=== PATIENT | female | born 1995 | race Caucasian/White ===

== ENCOUNTER 2017-06-19 15:05 | Emergency (ER) | payer OTHER ==
[~2017-06-19] VITALS: Ht 162.6 cm; Wt 90.6 kg
[2017-06-19 15:09] VITALS: Ht 162.6 cm; Wt 90.6 kg
[2017-06-19] MEDS ORDERED: ACETAMINOPHEN 500 MG TAB PO STA (15:16)
[2017-06-19] MEDS ORDERED: SODIUM CHLORIDE 0.9% 1000ML 1,000 ML IV STA (16:03)
[2017-06-19] MEDS ORDERED: BCPILLS PO (16:09)
[2017-06-19] MEDS ORDERED: ALBUT/IPRATROP 3MG/0.5MG NEB 3 ML VIAL INH STA (16:11)
--- NOTE | 2017-06-19 16:11 | EMERGENCY ROOM VISIT NOTE ---
History First contact with patient: 15:51 Chief Complaint: FLU LIKE SX Stated Complaint: CHEST PAIN,COUGH,YE,COLD,FEVER,RUNNY NOSE,DIZZY History of Present Illness The patient is a 22 year old female who presents to the Emergency Room with complaints of cough for the past week, and development of worsening cough, chest tightness, fevers and chills, dizziness, and fatigue starting last night. She has been coughing up clear mucus, she denies hemoptysis. She states her chest tightness is in the center of her chest, worse with coughing, better with rest, not worse with taking a deep breath or lying flat, 2/10. She complains of generalized body aches and headaches as well. She denies shortness of breath , but states that she feels a little winded with activity, which is unusual for her. She states she took Motrin last night, but has not taken any medications today for her symptoms. She denies any neck pain or stiffness, vision changes, syncope, abdominal pain, back pain, nausea or vomiting, diarrhea, constipation, bloody or black stools, dysuria or urinary frequency, abnormal vaginal discharge , or rash. She states that her period started yesterday and these are regular, she denies concern for . Review of Systems A complete 10 point review of systems was reviewed with the patient with pertinent positives and negatives as per history of present illness. All else were negative. Past Medical/Surgical History No significant past medical or surgical history. She is up-to-date on immunizations. Social History Smoking Status: Never Smoker Alcohol Use: none Drug Use: none Marital Status: single Occupation Status: [employer] student Current/Historical Medications Scheduled Control Pills ( Control Pills), 1 TAB PO DAILY Allergies No known allergies Physical Exam Vital Signs Date Time Temp Pulse Resp B/P (MAP) Pulse Ox O2 Delivery O2 Flow Rate FiO2 06/19/17 19:10 37.0 97 18 124/67 97 06/19/17 18:10 37.3 98 15 110/61 97 Room Air 06/19/17 17:35 100 15 97 06/19/17 17:05 107 20 97 06/19/17 16:48 102 06/19/17 16:39 118/52 06/19/17 16:38 95 18 118/52 97 Room Air 06/19/17 15:09 38.9 119 18 112/70 97 Room Air Physical Exam CONSTITUTIONAL: Pleasant and cooperative. No acute distress, but does appear uncomfortable. Mildly dehydrated. HEENT: Normocephalic, atraumatic. Pupils equal, round and reactive to light, EOMI. TMs normal. Pharynx normal. [] NECK: Supple, full active range of motion without discomfort. RESPIRATORY: Clear to auscultation bilaterally with no wheezing, crackles, rhonchi or stridor. Equal expansion bilaterally. CARDIOVASCULAR: Regular rate and rhythm with no murmurs, rubs or gallops. Normal peripheral perfusion. No edema. GASTROINTESTINAL: Soft, nontender, nondistended. No palpable masses or HSM. Bowel sounds present in all quadrants. MUSCULOSKELETAL: Full range of motion of all joints without discomfort. INTEGUMENTARY: No rash or other significant dermatologic conditions noted. NEUROLOGIC: Alert and oriented X 4 with normal affect. Cranial nerves II-XII grossly intact. No focal neurologic deficits noted. [] Medical Decision & Procedures ER Provider Diagnostic Interpretation: CHEST 2 VIEWS ROUTINE CLINICAL HISTORY: 22 years-old Female presenting with cough, fever, eval PNA. TECHNIQUE: PA and lateral views of the chest were obtained. COMPARISON: None. FINDINGS: Cardiomediastinal silhouette normal. Lungs and pleural spaces clear. Osseous structures normal. Upper abdomen normal. IMPRESSION: 1. No acute cardiopulmonary disease. Laboratory Results 06/19/17 16:21 Red Blood Count 5.01, Mean Corpuscular Volume 86.6, Mean Corpuscular Hemoglobin 28.9, Mean Corpuscular Hemoglobin Concent 33.4, Mean Platelet Volume 9.5, Neutrophils (%) (Auto) 72.0, Lymphocytes (%) (Auto) 14.0, Monocytes (%) (Auto) 13.6, Eosinophils (%) (Auto) 0.0, Basophils (%) (Auto) 0.2, Neutrophils # (Auto ) 3.85, Lymphocytes # (Auto) 0.75, Monocytes # (Auto) 0.73, Eosinophils # (Auto ) 0.00, Basophils # (Auto) 0.01 06/19/17 16:21 Test 06/19/17 16:21 06/19/17 16:40 White Blood Count 5.35 K/uL (4.8-10.8) Red Blood Count 5.01 M/uL (4.2-5.4) Hemoglobin 14.5 g/dL (12.0-16.0) Hematocrit 43.4 % (37-47) Mean Corpuscular Volume 86.6 fL (80-100) Mean Corpuscular Hemoglobin 28.9 pg (25-34) Mean Corpuscular Hemoglobin Concent 33.4 g/dl (32-36) Platelet Count 223 K/uL (130-400) Mean Platelet Volume 9.5 fL (7.4-10.4) Neutrophils (%) (Auto) 72.0 % Lymphocytes (%) (Auto) 14.0 % Monocytes (%) (Auto) 13.6 % Eosinophils (%) (Auto) 0.0 % Basophils (%) (Auto) 0.2 % Neutrophils # (Auto) 3.85 K/uL (1.4-6.5) Lymphocytes # (Auto) 0.75 K/uL (1.2-3.4) Monocytes # (Auto) 0.73 K/uL (0.11-0.59) Eosinophils # (Auto) 0.00 K/uL (0-0.5) Basophils # (Auto) 0.01 K/uL (0-0.2) RDW Standard Deviation 41.7 fL (36.4-46.3) RDW Coefficient of Variation 13.1 % (11.5-14.5) Immature Granulocyte % (Auto) 0.2 % Immature Granulocyte # (Auto) 0.01 K/uL (0.00-0.02) Anion Gap 9.0 mmol/L (3-11) Est Creatinine Clear Calc Drug Dose 117.9 ml/min Estimated GFR () 117.7 Estimated GFR (Non- 101.5 BUN/Creatinine Ratio 8.3 (10-20) Calcium Level 8.7 mg/dl (8.5-10.1) Total Bilirubin 0.3 mg/dl (0.2-1) Aspartate Amino Transf (AST/SGOT) 15 U/L (15-37) Alanine Aminotransferase (ALT/SGPT) 20 U/L (12-78) Alkaline Phosphatase 70 U/L (45-117) Total Protein 7.9 gm/dl (6.4-8.2) Albumin 3.7 gm/dl (3.4-5.0) Globulin 4.2 gm/dl (2.5-4.0) Albumin/Globulin Ratio 0.9 (0.9-2) Influenza Type A Antigen Neg for Influ A (NEG) Influenza Type B Antigen POS for Influ B (NEG) Urine Color DK YELLOW Urine Appearance CLEAR (CLEAR) Urine pH 5.0 (4.5-7.5) Urine Specific [place] 1.027 (1.000-1.030) Urine Protein NEG (NEG) Urine Glucose (UA) NEG (NEG) Urine Ketones TRACE (NEG) Urine Occult Blood 2+ (NEG) Urine Nitrite NEG (NEG) Urine Bilirubin NEG (NEG) Urine Urobilinogen NEG (NEG) Urine Leukocyte Esterase NEG (NEG) Urine WBC (Auto) 5-10 /hpf (0-5) Urine RBC (Auto) 0-4 /hpf (0-4) Urine Hyaline Casts (Auto) 1-5 /lpf (0-5) Urine Epithelial Cells (Auto) >30 /lpf (0-5) Urine Bacteria (Auto) NEG (NEG) Urine Test NEG (NEG) Medications Administered Medications (Trade) Dose Ordered Sig/Clive Route Start Time Stop Time Status Last Admin Dose Admin Acetaminophen (Tylenol Tab) 1,000 mg NOW STAT PO 06/19/17 15:16 06/19/17 15:18 DC 06/19/17 15:55 1,000 MG Sodium Chloride 1,000 ml @ 999 mls/hr Q1H1M STAT IV 06/19/17 16:03 06/19/17 17:03 DC 06/19/17 16:26 999 MLS/HR Albuterol/ Ipratropium (Duoneb) 3 ml NOW STAT INH 06/19/17 16:11 06/19/17 16:12 DC 06/19/17 16:26 3 ML Ketorolac Tromethamine (Toradol Inj) 15 mg NOW STAT IV 06/19/17 17:29 06/19/17 17:30 DC 06/19/17 18:09 15 MG ECG Indication: chest pain, tachycardia Rate (beats per minute): 88 Rhythm: normal sinus Findings: no acute ischemic change, no ectopy Comparison ECG Date: no prior available Medical Decision CC: Patient presenting with complaint of flulike symptoms Interpretation of Labs: No leukocytosis, no anemia, no significant electrolyte abnormality, normal renal function, normal liver enzymes. Influenza positive for type B. UA negative for infection. Urine negative. Differential Diagnosis: Includes, but not limited to viral URI, bronchitis, pneumonia, influenza, dehydration, among others. Medication Reconciliation: I attest that I have personally reviewed the patient' s current medication list. Initial vital signs review: I reviewed the patient's vital signs and interpret them as follows: T: Febrile; BP: Normotensive; HR: Tachycardic; RR: Within normal limits; Pulse Ox: Within normal limits on room air. Blood pressure screening: The patient was found to have normal blood pressure on screening and does not require follow-up for repeat blood pressure check. Summary: Patient was evaluated at bedside, history and physical exam performed. Patient is alert and oriented, no acute distress, resting, in the stretcher. Patient is noted to be tachycardic and febrile, and appears to feel generally unwell. She does appear mildly dehydrated. Orders were placed at bedside for labs, UA and urine , IV fluids for hydration, Tylenol for fever, EKG, chest x-ray to evaluate for pneumonia. Patient discussed with Dr. Martin, who agrees with my assessment and plan. Labs reviewed as above, positive for influenza type B. Labs otherwise unremarkable. EKG shows normal sinus rhythm with no acute ischemic changes by my interpretation. Chest x-ray is unremarkable. Patient reassessed multiple times throughout ED stay, she appears much improved , tachycardia resolving, and she has defervesced appropriately after Tylenol. She is tolerating oral fluids well without complications. She states she is feeling much better and is ready to go home. Patient was updated on all results and plan for discharge, she was encouraged to follow closely with her primary care provider or [facility]. She was also given strict return precautions should her symptoms worsen, she verbalized understanding. The patient was discharged home in stable condition and ambulatory. Impression Primary Impression: Influenza B Departure Information Dispostion Home / Self-Care Condition GOOD Patient Instructions ED Flu, My [facility] Additional Instructions You have been treated in the Emergency Department today for Dehydration. Test results today are POSITIVE for influenza type B. This is most likely the cause of all of your symptoms. Influenza is a type of virus that should run its course and symptoms should be improved after 7-10 days, but may last up to 14 days. For fevers and body aches/headaches, you may take the following over-the- counter medications: - Extra strength Tylenol (500 mg) 1-2 tablets every 6-8 hours as needed. Do not take more than 6 tablets (3000 mg) in 24 hours. - Ibuprofen (200 mg) 3 tablets every 6-8 hours as needed. Do not take more than 2400 mg in 24 hours. - For best results, you may alternate between the Tylenol and the ibuprofen every 3-4 hours for severe body aches and fevers. It is ESSENTIAL that you maintain adequate hydration with oral fluids! Some suggestions include: - Water is the IDEAL replacement for lost fluids. You should initially sip at the water to help facilitate increased intestinal absorption rate and to decrease the possibility of nausea/vomiting. - Carbohydrate/Electrolyte-Containing Drinks (i.e. Gatorade, Powerade, Pedialyte). All of these are good choices, but it is important to remember that all of these drinks contain a high concentration of sugar. - Popsicles, ice chips, and fruit juices are all other options. - My FAVORITE dehydration remedy is to mix a 1:1 solution of bottled Gatorade with bottled water. This dilution allows for a palatable flavor with added benefit of a reduction in the amount of sugar consumption. As with all Emergency Department visits, you should follow-up with your Primary Care Provider in 2-3 days for reevaluation. [facility] tomorrow morning for guidance and assistance regarding any missed classes this week due to your illness. Please return to the emergency department for any worsening symptoms, including difficulty breathing, chest pain, coughing up blood, severe dizziness or passing out, confusion, severe headache, or any other concerns. School Instructions Return To School: 5 days
[2017-06-19 16:35] LABS: BASO % 0.2 %; BASO ABS # 0.01 K/uL (0-0.2); HEMATOCRIT 43.4 % (37-47); HEMOGLOBIN 14.5 g/dL (12.0-16.0); IG# 0.01 K/uL (0.00-0.02); LYMPH ABS # 0.75 K/uL (1.2-3.4); MEAN CELL VOLUME 86.6 fL (80-100); MEAN CORPUSCULAR HEMOGLOBIN 28.9 pg (25-34); MEAN CORPUSCULAR HGB CONC 33.4 g/dl (32-36); MEAN PLATELET VOLUME 9.5 fL (7.4-10.4); MONO % 13.6 %; MONO ABS # 0.73 K/uL (0.11-0.59); NEUT ABS # 3.85 K/uL (1.4-6.5); PLATELET COUNT 223 K/uL (130-400); RED CELL DISTRIBUTION WIDTH CV 13.1 % (11.5-14.5); RED CELL DISTRIBUTION WIDTH SD 41.7 fL (36.4-46.3); WHITE BLOOD COUNT 5.35 K/uL (4.8-10.8)
[2017-06-19 16:52] LABS: ALBUMIN 3.7 gm/dl (3.4-5.0); CALCIUM 8.7 mg/dl (8.5-10.1); CREATININE 0.83 mg/dl (0.60-1.20); POTASSIUM 3.4 mmol/L (3.5-5.1)
[2017-06-19 16:55] LABS: TOTAL PROTEIN 7.9 gm/dl (6.4-8.2)
--- NOTE | 2017-06-19 17:24 | DIAGNOSTIC IMAGING REPORT ---
CHEST 2 VIEWS ROUTINE CLINICAL HISTORY: 22 years-old Female presenting with cough, fever, eval PNA. TECHNIQUE: PA and lateral views of the chest were obtained. COMPARISON: None. FINDINGS: Cardiomediastinal silhouette normal. Lungs and pleural spaces clear. Osseous structures normal. Upper abdomen normal. IMPRESSION: 1. No acute cardiopulmonary disease. Electronically signed by: Ayden Cazares M.D. 06/19/2017 5:23 PM Dictated Date/Time: 06/19/2017 5:22 PM
[2017-06-19 17:27] LABS: INFLUENZA B ANTIGEN POS for Influ B (NEG)
[2017-06-19] MEDS ORDERED: KETOROLAC TROMETHAMINE 30 MG/ML VIAL IV STA (17:29)
[2017-06-19 19:10] VITALS: BP 124/67; PULSE 97; TEMP 37; O2SAT 97
== END 2017-06-19 19:10 | disposition home or self-care (01) ==
LOC: C.EDB 15:08 → C.EDC 19:10
DX: J10.1 Influenza due to other identified influenza virus with other respiratory manifestations (principal); Z79.3 Long term (current) use of hormonal contraceptives

== ENCOUNTER → 2017-07-14 | Outpatient (CLI) | payer OTHER ==
[~2017-07-14] MED LIST: BCPILLS PO
== END | disposition home or self-care (01) ==
LOC: C.LABSPEC 11:17
PROVIDERS: ATTEND Physician Assistant
DX: Z20.2 Contact with and (suspected) exposure to infections with a predominantly sexual mode of transmission (principal)